=== PATIENT | female | born 1960 | race Caucasian/White ===

== ENCOUNTER → 2018-03-17 | Outpatient (CLI) | payer OTHER ==
--- NOTE | 2018-03-17 13:09 | US ---
EXAMINATION TYPE: US transvaginal DATE OF EXAM: 03/17/2018 COMPARISON: NONE CLINICAL HISTORY: N83.209 H/O OVARIAN CYST. TECHNIQUE: Transvaginal (TV). Transvaginal sonographic images were medically necessary to better as sess the following anatomy: Ovaries Date of LMP: 6 years ago EXAM MEASUREMENTS: Uterus: 8.5 x 4.4 x 4.6 cm Endometrial Stripe: 0.3 cm Right Ovary: Not seen sonographically cm Left Ovary: ? 1.3 x 1.4 x 0.1 cm 1. Uterus: Anteverted Large, heterogeneous, myomatous uterus with largest fibroids off to right si de: 1) Posterior = 6.5 x 5.6 x 5.0 cm 2) Anterior = 3.2 x 3.4 x 3.2 cm Other fibroids seen throughout uterus. 2. Endometrium: wnl 3. Right Ovary: Obscured by overlying bowel gas 4. Left Ovary: ? Seen and wnl. 5. Bilateral Adnexa: wnl 6. Posterior cul-de-sac: wnl Suboptimal study due to marked heterogeneity of uterus. Vague hypoechoic areas are felt to reflect in trauterine fibroids. There is hyperechoic bulging suspicious for larger subserosal fibroid in the rig ht uterine fundus. No free fluid is seen in pelvis. IMPRESSION: Ovaries not well identified on today's study. Suspect underlying uterine fibroids. Pelvic MRI could be performed to further evaluate both.
== END | disposition home or self-care (01) ==
LOC: RADUSWWP 12:05
PROVIDERS: ATTEND Internal Medicine Geriatric Medicine
DX: N95.1 Menopausal and female climacteric states (principal)
CPT/HCPCS: 76830

== ENCOUNTER → 2022-05-06 | Outpatient (CLI) | payer OTHER ==
--- NOTE | 2022-05-06 15:33 | US ---
EXAMINATION TYPE: US thyroid st tissue head/neck DATE OF EXAM: 05/06/2022 COMPARISON: NONE CLINICAL HISTORY: R59.0 ENLARGED LYMPH NODES. Left post auricular mass enlarging for 3 years. In the area of palpable hard mass, left post auricular, a hypoechoic irregular shaped, vascular mass is visualized. 2.6 x 1.4 x 2.0 cm. IMPRESSION: Suspicious 2.6 cm hypervascular solid superficial mass at the area of concern, neoplasm cannot be exc luded. Further investigation with contrast-enhanced CT and/or MRI is advised to better evaluate and/o r characterize.
== END | disposition home or self-care (01) ==
LOC: RADUSWWP 15:02
PROVIDERS: ATTEND Student in an Organized Health Care Education/Training Program
DX: R59.0 Localized enlarged lymph nodes (principal)
CPT/HCPCS: 76536

== ENCOUNTER → 2022-06-10 | Outpatient (CLI) | payer OTHER ==
--- NOTE | 2022-06-10 15:46 | XR ---
EXAMINATION TYPE: XR chest 2V DATE OF EXAM: 06/10/2022 COMPARISON: NONE HISTORY: Cough. TECHNIQUE: Frontal and lateral views of the chest are obtained. FINDINGS: Mild chronic parenchymal changes bilaterally are present. There is no focal air space opac ity, pleural effusion, or pneumothorax seen. The cardiac silhouette size is within normal limits. The osseous structures are demineralized. Suspect old healed fractures of the posterior right mid rib s. Correlate clinically. IMPRESSION: Chronic changes without acute pulmonary process.
== END | disposition home or self-care (01) ==
LOC: RADXRMAIN 15:23
PROVIDERS: ATTEND Otolaryngology
DX: R05.3 Chronic cough (principal)
CPT/HCPCS: 71046

== ENCOUNTER → 2022-06-10 | Outpatient (CLI) | payer OTHER ==
--- NOTE | 2022-06-11 18:51 | MM ---
Reason for Exam: Screening (asymptomatic). Last mammogram was performed 6 year(s) and 9 month(s) ago. Patient History: Menarche at age 11. Patient has no children. Postmenopausal. Risk Values: Yudith 5 year model risk: 1.7%. NCI Lifetime model risk: 9.1%. Prior Study Comparison: 12/13/2012 Bilateral Diagnostic Mammogram, [facility]. 09/17/2015 Bilateral Screening Mammogram, [facility]. Tissue Density: The breast tissue is heterogeneously dense. This may lower the sensitivity of mammography. Findings: Analyzed By CAD. There are circumscribed isodense nodularity 2:00 posterior right breast which has overall benign features and is suspected to have been obscured by superimposed fibroglandular tissue on the prior 2015 exam. Short interval follow-up recommended to reassess. Otherwise, no significant change. Overall Assessment: Probably benign, BI-RAD 3 Management: Diagnostic Mammogram of the right breast in 6 months. 1. Patient should continue monthly self breast exams. 2. A clinical breast exam by your physician is recommended on an annual basis. 3. This exam should not preclude additional follow-up of suspicious palpable abnormalities. Electronically signed and approved by: Jennifer Westfall M.D. Radiologist
== END | disposition home or self-care (01) ==
LOC: RADMAMWWP 15:35
PROVIDERS: ATTEND Internal Medicine Geriatric Medicine
DX: Z12.31 Encounter for screening mammogram for malignant neoplasm of breast (principal); Z78.0 Asymptomatic menopausal state
CPT/HCPCS: 77067

== ENCOUNTER → 2023-06-24 | Outpatient (CLI) | payer OTHER ==
--- NOTE | 2023-06-24 11:23 | XR ---
EXAMINATION TYPE: XR chest 2V DATE OF EXAM: 06/24/2023 COMPARISON: 06/10/2022. TECHNIQUE: PA and lateral views submitted. HISTORY: Cough FINDINGS: The lungs are clear and there is no pneumothorax, pleural effusion, or focal pneumonia. Heart size normal and no overt failure. Osseous structures demonstrate hypertrophic and degenerative changes of the spine. Mild hyperinflation related to asthma or COPD. There is subsegmental density along the rig ht lung base. Chronic deformity of the posterior right rib cage. IMPRESSION: 1. No acute process. Density along the medial margin of the right lung base is stable dating back to 2021. Could be related to chronic atelectasis or eventration of the hemidiaphragm. Short-term follow- up CT scan could be obtained as clinically warranted.
--- NOTE | 2023-06-24 21:50 | BD ---
EXAMINATION TYPE: Axial Bone Density DATE OF EXAM: 06/24/2023 CLINICAL HISTORY: 63 years old Female. 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 Bone mineral density as measured about the Lumbar spine is: ----- L1-L4(G/cm2): 1.291 T Score Values are as follows: ----- L1: -0.2 ----- L2: 0.5 ----- L3: 2.4 ----- L4: 0.6 ----- L1-L4: 0.9 Z Score Values are as follows: ----- L1: 0.2 ----- L2: 0.9 ----- L3: 2.8 ----- L4: 1.0 ----- L1-L4: 1.[address] [facility] Bone mineral density about the L hip (g/cm2): 1.026 T Score values are as follows: ----- -----L Neck: 1.0 ----- -----L Total: 0.1 Z Score values are as follows: -----L Neck: 1.7 ----- -----L Total: 0.[address] [facility] FRAX%s: The graph provided illustrates a 9.2% chance for a major osteoporotic fx and a 0.1% chance fo r the hips probability for fx in 10 years time. IMPRESSION: Normal (Values between +1 and -1 indicate normal bone mass). Consider repeating this study in 5 year s or sooner if there is some new clinical indication. NOTE: T-SCORE=SD OF THE YOUNG ADULT MEAN.
--- NOTE | 2023-06-30 10:12 | MM ---
Reason for Exam: Screening (asymptomatic). Last screening mammogram was performed 12 month(s) ago. Patient History: Menarche at age 11. Patient has no children. Postmenopausal. Risk Values: Yudith 5 year model risk: 1.8%. NCI Lifetime model risk: 8.6%. Prior Study Comparison: 12/13/2012 Bilateral Diagnostic Mammogram, [facility]. 09/17/2015 Bilateral Screening Mammogram, [facility]. 06/10/2022 Bilateral MG screening mammo w CAD, [facility]. Tissue Density: The breast tissue is heterogeneously dense. This may lower the sensitivity of mammography. Findings: Analyzed By CAD. There is no suspicious group of microcalcifications or new suspicious mass. Benign-appearing calcifications bilaterally. Overall Assessment: Benign, BI-RAD 2 Management: Screening Mammogram of both breasts in [address] [facility] will attempt to contact patient to return for supplemental views and ultrasound if indicated. Patient should continue monthly self-breast exams. A clinical breast exam by your physician is recommended on an annual basis. This exam should not preclude additional follow-up of suspicious palpable abnormalities. Note on Yudith scores and lifetime risk: 1. A Yudith score greater than 3% is considered moderate risk. If this is the case, consider specialist referral to assess eligibility for a risk reducing agent. 2. If overall lifetime risk for the development of breast cancer is 20% or higher, the patient may qualify for future screening with alternating mammogram and breast MRI. Electronically signed and approved by: Ritesh Cummins DO
== END | disposition home or self-care (01) ==
LOC: RADMAMWWP 09:45
PROVIDERS: ATTEND Internal Medicine Geriatric Medicine
DX: Z12.31 Encounter for screening mammogram for malignant neoplasm of breast (principal); M89.9 Disorder of bone, unspecified; J98.4 Other disorders of lung; Z78.0 Asymptomatic menopausal state
CPT/HCPCS: 71046; 77063; 77067; 77080

== ENCOUNTER 2023-10-11 09:53 | Day surgery (SDC) | payer OTHER ==
[~2023-10-11 09:53] MED LIST: HYDROmorphone 0.5 MG/0.5 ML SYRINGE IVP PRN; MIDAZOLAM 2 MG/2 ML VIAL IV PRN
[2023-10-11] MEDS: LACTATED RINGERS 1,000 ML IV SCH (10:33)
[2023-10-11] MEDS: DEXAMETHASONE SOD PHOSPHATE 4 MG/ML 1 ML VIAL IV ONE (10:44)
[2023-10-11] MEDS: ONDANSETRON 4 MG/2 ML VIAL IVP ONE (10:44)
[2023-10-11] MEDS: HEPARIN SODIUM,PORCINE 5,000 UNIT/ML 1 ML VIAL SQ PRN (10:44)
[2023-10-11] MEDS: ACETAMINOPHEN TAB 500 MG TAB PO PRN (10:44)
[2023-10-11] MEDS: SCOPOLAMINE 1 MG/72 HR PATCH TRANSDERM ONE (10:45)
[2023-10-11 10:54] VITALS: RESP 16
[2023-10-11] MEDS ORDERED: MIDAZOLAM 2 MG/2 ML VIAL ONE (11:04)
[2023-10-11] MEDS ORDERED: ePHEDrine 50 MG/ML 1 ML VIAL ONE (11:04)
[2023-10-11] MEDS ORDERED: LIDOCAINE 1% INJ 10MG/ML (20 ML MDV) ONE (11:04)
[2023-10-11] MEDS ORDERED: SUCCINYLCHOLINE CHLORIDE 200 MG/10 ML VIAL IV ONE (11:04)
[2023-10-11] MEDS ORDERED: HYDROmorphone (PF) 1 MG/ML ONE (11:04)
[2023-10-11] MEDS ORDERED: ROCURONIUM 10 MG/ML (5 ML VIAL) IV ONE (11:04)
[2023-10-11] MEDS ORDERED: fentaNYL (PF) 50 MCG/ML 2 ML AMP ONE (11:04)
[2023-10-11] MEDS ORDERED: PROPOFOL 10 MG/ML 20 ML VIAL IV ONE (11:04)
[2023-10-11] MEDS ORDERED: GLYCOPYRROLATE 0.2 MG/ML 2 ML VIAL ONE (11:04)
[2023-10-11] MEDS ORDERED: NEOSTIGMINE 1 MG/ML 10 ML VIAL ONE (11:04)
[2023-10-11] MEDS: BUPIVACAINE (PF) 0.5% 30 ML VIAL SQ ONE (11:44)
--- NOTE | 2023-10-11 12:21 | P.OP ---
Date of Procedure: 10/11/23 Procedure(s) Performed: PREOPERATIVE DIAGNOSIS: Chronic cholecystitis POSTOPERATIVE DIAGNOSIS: Same PROCEDURE: Laparoscopic cholecystectomy SURGEON: Vick EBL: Minimal see anesthesia record ANESTHESIA: Gen. COMPLICATIONS: None OPERATIVE PROCEDURE: The patient was brought and placed on the operating room table in the supine position. The patient was placed under general anesthesia at that time. The abdomen was prepped and draped in the usual sterile fashion. A small vertical infraumbilical incision was made. The fascia was grasped with the Reji forceps. The fascia was retracted anteriorly. The Veress needle was advanced into the peritoneal cavity. The saline drop test was normal. Insufflation took place up to 15 mmHg. A 5 mm optical trocar was advanced and the peritoneal cavity. 2 additional 5 mm trochars were placed in the right upper quadrant under direct visualization. A 12 mm trocar was advanced into the epigastric incision site. The gallbladder was retracted superiorly and laterally. The peritoneum overlying the infundibulum was bluntly dissected. The patient's cystic duct was visualized. The junction between the cystic duct common and hepatic duct was identified. The critical view of safety was achieved after blunt dissection. The cystic duct was then divided after placement of 3 12 mm clips on the patient's side and one on the specimen side. The cystic artery was identified and clipped as well. A small vessel was seen along the gallbladder fossa and clipped as well. The gallbladder was then removed from the liver bed using electrocautery. The gallbladder was then removed from the epigastric trocar site with an Endo Catch bag. The gallbladder fossa was irrigated with saline. There was no evidence of any bleeding or biliary drainage seen. The fascia at the 12 millimeter site was closed using a Jerrod-Amos 0 Vicryl stitch. The trochars were then removed. The skin at all 4 sites was closed using a 4-0 Monocryl stitch. Skin glue was utilized on the incision sites. At the end of this procedure the sponge and needle counts were correct. DISPOSITION: Stable to the recovery room
[2023-10-11] MEDS: LACTATED RINGERS 1,000 ML IV ONE ×2 (12:50→13:47)
[2023-10-11 13:01] VITALS: TEMP 97.8
[2023-10-11 14:26] VITALS: BP 132/76
[2023-10-11 15:09] VITALS: PULSE 69
[2023-10-11] MEDS ORDERED: ACETAMINOPHEN TAB 325 MG TAB PO SCH (16:00)
[2023-10-11] MEDS ORDERED: IBUPROFEN 600 MG TAB PO SCH (19:00)
== END 2023-10-11 15:10 | disposition home or self-care (01) ==
LOC: OR 09:53
PROVIDERS: ATTEND Surgery
DX: K80.10 Calculus of gallbladder with chronic cholecystitis without obstruction (principal); I10 Essential (primary) hypertension; E78.2 Mixed hyperlipidemia; E03.9 Hypothyroidism, unspecified; F12.90 Cannabis use, unspecified, uncomplicated; K21.9 Gastro-esophageal reflux disease without esophagitis; Z83.3 Family history of diabetes mellitus; Z82.49 Family history of ischemic heart disease and other diseases of the circulatory system; Z79.899 Other long term (current) drug therapy; Z98.890 Other specified postprocedural states
CPT/HCPCS: 47562; J1644; J1100; J0690; J2405; J0665; 88304

== ENCOUNTER 2024-08-24 13:21 | Day surgery (SDC) | payer OTHER ==
[2024-08-23 09:12] VITALS: BMI 31.5
[2024-08-24] MEDS ORDERED: LACTATED RINGERS 1,000 ML IV SCH (13:26)
[2024-08-24] MEDS ORDERED: HYDROmorphone 0.5 MG/0.5 ML SYRINGE IVP PRN (13:26)
[2024-08-24] MEDS ORDERED: MIDAZOLAM 2 MG/2 ML VIAL IV PRN (13:26)
[2024-08-24] MEDS ORDERED: LIDOCAINE 1% (10MG/ML) FOR IV START INTRADERMA PRN (13:26)
[2024-08-24] MEDS ORDERED: fentaNYL (PF) 50 MCG/ML 2 ML AMP IVP PRN (13:26)
[2024-08-24] MEDS: IV FLUID CONTINUATION 1,000 ML IV ONE (13:41)
[2024-08-24] MEDS: LACTATED RINGERS 1,000 ML IV SCH (13:46)
[2024-08-24] MEDS: DEXAMETHASONE SOD PHOSPHATE 4 MG/ML 1 ML VIAL IV ONE (13:48)
[2024-08-24] MEDS: ONDANSETRON 4 MG/2 ML VIAL IVP ONE (13:48)
[2024-08-24] MEDS: FAMOTIDINE 20 MG/2 ML VIAL IV STA (13:48)
[2024-08-24] MEDS ORDERED: LIDOCAINE 1% INJ 10MG/ML (20 ML MDV) ONE (14:15)
[2024-08-24] MEDS ORDERED: ePHEDrine 50 MG/ML 1 ML VIAL ONE (14:15)
[2024-08-24] MEDS ORDERED: NEOSTIGMINE 1 MG/ML 10 ML VIAL ONE (14:15)
[2024-08-24] MEDS ORDERED: PROPOFOL 10 MG/ML 20 ML VIAL IV ONE (14:15)
[2024-08-24] MEDS ORDERED: ROCURONIUM 10 MG/ML (5 ML VIAL) IV ONE (14:15)
[2024-08-24] MEDS ORDERED: GLYCOPYRROLATE 0.2 MG/ML 2 ML VIAL ONE (14:15)
[2024-08-24] MEDS ORDERED: SUCCINYLCHOLINE CHLORIDE 200 MG/10 ML VIAL IV ONE (14:15)
[2024-08-24] MEDS ORDERED: fentaNYL (PF) 50 MCG/ML 2 ML AMP ONE (14:15)
[2024-08-24 15:35] VITALS: TEMP 97
[2024-08-24 16:19] VITALS: PULSE 53; RESP 14
[2024-08-24 16:24] VITALS: BP 129/78
--- NOTE | 2024-08-24 17:28 | P.PCN ---
Date of Procedure: 08/24/24 Operative Findings: Preoperative Diagnosis: Mediastinal lymphadenopathy Postoperative Diagnosis: same Procedure(s) Performed: Endobronchial ultrasound and transbronchial needle aspirate of right hilar station 7 and 4R lymph node, PET avid Anesthesia: ANNEA Surgeon: Tom Willams Estimated Blood Loss (ml): 0 Pathology: other Condition: stable Disposition: same day Operative Findings: Consent was obtained. A timeout was done. The patient was intubated in the usual fashion by [employer] and the patient was given a #8 orotracheal tube. After achieving adequate oxygenation and ventilation, the procedure was initiated. The flexible bronchoscope was inserted through the orotracheal tube. A full airway examination was done. Airways were all within normal limits. The patient was and was included the distal trachea, main desirae, bilateral mainstem bronchi, right upper lobe bronchus, bronchus intermedius, right middle lobe bronchus and the right lower lobe bronchus and the various 10 segments on the right in addition to left mainstem bronchus, left upper lobe bronchus and the left lobe bronchus and the various 8 segments on the left. No endobronchial tumors. No abnormalities identified The flexible bronchoscope was removed. The bronchial ultrasound was inserted. Careful evaluation of the mediastinal lymph nodes revealed a 9x6mm station 4R, 8 x 7 mm station 10L and several matted lymph nodes in station 7 largest measuring around 1.5 cm in size. In addition, small lymph nodes are also noted at station 11R. Using a 22-gauge needle, transbronchial needle aspirate of the station 7 lymph node was done. Samples were evaluated the bedside by pathology. The rest of the samples were placed in cell block and lymphoma solution. A total of 6 passes were done in the involved station. Transbronchial needle aspirate of station 4R lymph node was done, a total of 3 passes. The endobronchial ultrasound was removed. No bleeding was identified. Flexible cath was inserted for therapeutic airway suctioning. Procedure was terminated. The bronchoscope was removed and the patient was transferred to recovery in stable condition.
== END 2024-08-24 16:50 | disposition home or self-care (01) ==
LOC: ORWHC2ENDO 13:21
PROVIDERS: ATTEND Internal Medicine Critical Care Medicine
DX: R59.0 Localized enlarged lymph nodes (principal); I10 Essential (primary) hypertension; J44.9 Chronic obstructive pulmonary disease, unspecified; K21.9 Gastro-esophageal reflux disease without esophagitis; F41.9 Anxiety disorder, unspecified; R42 Dizziness and giddiness; Z91.89 Other specified personal risk factors, not elsewhere classified; Z79.51 Long term (current) use of inhaled steroids; Z79.899 Other long term (current) drug therapy; Z85.858 Personal history of malignant neoplasm of other endocrine glands; Z80.1 Family history of malignant neoplasm of trachea, bronchus and lung
CPT/HCPCS: 88305; 31629; 31653; J0330; J1100; J2710; J2405; J2003; J3010; J3490; J2704; J1596

== ENCOUNTER → 2025-01-09 | Outpatient (CLI) | payer OTHER ==
--- NOTE | 2025-01-09 16:35 | MM ---
Reason for Exam: Screening (asymptomatic). Last mammogram was performed 1 year(s) and 7 month(s) ago. Patient History: Menarche at age 11. Patient has no children. Postmenopausal. Risk Values: Yudith 5 year model risk: 1.9%. NCI Lifetime model risk: 8.4%. Prior Study Comparison: 09/17/2015 Bilateral Screening Mammogram, [facility]. 06/10/2022 Bilateral MG screening mammo w CAD, [facility]. 06/24/2023 Bilateral MG 3D screening mammo w/cad, [facility]. Tissue Density: The breasts are heterogeneously dense, which may obscure small masses. Findings: Analyzed By CAD. There is no suspicious group of microcalcifications or new suspicious mass in either breast. Overall Assessment: Negative, BI-RAD 1 Management: Screening Mammogram of both breasts in 1 year. . Patient should continue monthly self-breast exams. A clinical breast exam by your physician is recommended on an annual basis. This exam should not preclude additional follow-up of suspicious palpable abnormalities. Note on Yudith scores and lifetime risk: 1. A Yudith score greater than 3% is considered moderate risk. If this is the case, consider specialist referral to assess eligibility for a risk reducing agent. 2. If overall lifetime risk for the development of breast cancer is 20% or higher, the patient may qualify for future screening with alternating mammogram and breast MRI. [facility], , 01/09/2025 3:37 PM. Electronically signed and approved by: Conner Jerry M.D.
[2025-01-09 19:59] LABS: Basophils # (A) 0.05 X 10*3/uL (0.00-0.10); Basophils % (A) 0.7 %; Eosinophils # (A) 0.26 X 10*3/uL (0.04-0.35); Eosinophils % (A) 3.5 %; HCT 40.7 % (37.2-46.3); HGB 13.3 g/dL (12.0-15.0); Immature Grans, Automated 0.40 %; Lymphocytes # (A) 0.88 X 10*3/uL (0.90-5.00); Lymphocytes % (A) 12.0 %; MCH 28.6 pg (27.0-32.0); MCHC 32.7 g/dL (32.0-37.0); MCV 87.5 FL (80.0-97.0); Monocytes # (A) 0.59 X 10*3/uL (0.20-1.00); Monocytes % (A) 8.0 %; NRBC Per 100 WBC 0 X 10*3/uL (0.00-0.01); Neutrophils # (A) 5.53 X 10*3/uL (1.80-7.70); Neutrophils % (A) 75.4 %; Platelet Count 247 X 10*3/uL (140-440); RBC 4.65 X 10*6/uL (4.10-5.20); RDW 13.1 % (11.5-14.5); WBC 7.34 X 10*3/uL (4.50-10.00)
== END | disposition home or self-care (01) ==
LOC: RADMAMWWP 14:15
PROVIDERS: ATTEND Internal Medicine Geriatric Medicine
DX: Z12.31 Encounter for screening mammogram for malignant neoplasm of breast (principal); R92.333 Mammographic heterogeneous density, bilateral breasts; Z78.0 Asymptomatic menopausal state
CPT/HCPCS: 77067; 82164; 85025; 85652; 86038